=== PATIENT | female | born 1995 | race Caucasian/White ===

== ENCOUNTER 2019-10-07 07:27 | Emergency (ER) | payer OTHER ==
[2019-10-07 07:49] VITALS: BP 105/69
--- NOTE | 2019-10-07 09:13 | UC ---
Complaint Female HPI - HPI Summary HPI Summary: 4 DAYS OF WAXING AND WANING DYSURIA AND FREQUENCY. TODAY HAS LOW BACK PAIN. RECENTLY HAS BEEN HAVING A LOT OF SEX. LAST INTERCOURSE WAS JUST PRIOR TO THE ONSET OF HER SYMPTOMS. SHE ALSO IS COMPLAINING OF SOME VAGUE VAGINAL DISCOMFORT AND IS CONCERNED ABOUT A POSSIBLE YEAST INFECTION. SHE DENIES ANY CHANGE IN HER VAGINAL DISCHARGE. HAS BEEN USING OTC MONISTAT WITH SOME IMPROVEMENT. SHE IS NOT CONCERNED ABOUT OR STD. - History Of Current Complaint Chief Complaint: UCGU Stated Complaint: BURNING WHEN URINATING Time Seen by Provider: 10/07/19 08:02 Hx Obtained From: Patient Hx Last Menstrual Period: 09/28/19 Onset/Duration: Gradual Onset, Lasting Days, Still Present Severity Initially: Moderate Severity Currently: Moderate Pain Intensity: 4 Pain Scale Used: 0-10 Numeric Character: Burning Aggravating Factor(s): Urination Alleviating Factor(s): Nothing Associated Signs And Symptoms: Positive: Back Pain. Negative: Vaginal Bleeding/ Discharge, Nausea - Allergies/Home Medications Allergies/Adverse Reactions: Allergies Allergy/AdvReac Type Severity Reaction Status Date / Time Penicillins Allergy anaph Verified 10/07/19 07:49 Home Medications: Home Medications Cetirizine* [ZyrTEC 10 MG TAB*] 1 tab PO DAILY 10/07/19 [History Confirmed 10/07] Norethindrone AC-Eth Estradiol [Junel 1 mg-20 Mcg Tablet] 1 tab PO DAILY [History Confirmed 10/07/19] PMH/Surg Hx/FS Hx/Imm Hx Previously Healthy: Yes - Surgical History Surgical History: Yes Surgery Procedure, Year, and Place: [facility] right pinky finger hymenectomy - Family History Known Family History: Positive: Non-Contributory - Social History Alcohol Use: Occasionally Substance Use Type: None Smoking Status (MU): Never Smoked Tobacco Review of Systems All Other Systems Reviewed And Are Negative: Yes Constitutional: Positive: Negative Respiratory: Positive: Negative Cardiovascular: Positive: Negative Gastrointestinal: Positive: Negative Genitourinary: Positive: Dysuria, Frequency, Vaginal/Penile Pain. Negative: Urgency Physical Exam Triage Information Reviewed: Yes Appearance: Well-Appearing, No Pain Distress, Well-Nourished Vital Signs: Initial Vital Signs Temp 98.9 F 10/07/19 07:44 Pulse 82 10/07/19 07:44 Resp 18 10/07/19 07:44 BP 105/69 10/07/19 07:44 Pulse Ox 99 10/07/19 07:44 Laboratory Tests 10/07/19 08:23 POC Urine Color Yellow POC Urine Clarity Cloudy POC Urine pH 5.5 POC Ur Specif [place] >= 1.030 POC Urine Protein 1+ A POC Ur Glucose (UA) Negative POC Urine Ketones Negative POC Urine Blood 2+ A POC Urine Nitrite Negative POC Urine Bilirubin Negative POC Urine Urobilinogen 0.2 POC U Leukocyte Esteras 1+ A Eyes: Positive: Conjunctiva Clear ENT: Positive: Hearing grossly normal Neck: Positive: Supple Respiratory: Positive: No respiratory distress, No accessory muscle use Cardiovascular: Positive: Pulses Normal Abdomen Description: Positive: Soft. Negative: CVA Tenderness (R), CVA Tenderness (L), Distended, Guarding Pelvic Exam: Positive: Speculum Exam Normal - NABOTHIAN CYSTS ON CERVIX, No Cerv. Motion Tender. Negative: Cervicitis, Discharge Musculoskeletal: Positive: No Edema Neurological: Positive: Alert Psychological: Positive: Age Appropriate Behavior Skin: Negative: Rashes Complaint Female Dx - Course Course Of Treatment: URINE DIP SUGGESTIVE OF UTI SO WILL TREAT SUCH WITH BACTRIM. ADVISED TO STAY WELL-HYDRATED. PELVIC EXAM DONE TODAY AND CLINICAL FINDINGS NOT CONVINCING FOR VAGINITIS. SWAB SENT FOR TESTING. ADVISED TO CONTINUE HER OVER- THE-COUNTER MONISTAT. WILL CALL WITH ANY ABNORMAL RESULTS. PATIENT DECLINED TESTING AND STD TESTING TODAY. - Differential Dx/Diagnosis Provider Diagnosis: UTI (urinary tract infection) Discharge ED - Sign-Out/Discharge Documenting (check all that apply): Patient Departure All imaging exams completed and their final reports reviewed: No Studies - Discharge Plan Condition: Stable Disposition: HOME Prescriptions: Sulfamethox/Trimethoprim DS* [Bactrim DS 800/160 TAB*] 1 tab PO BID #10 tab Patient Education Materials: Urinary Tract Infection in Women (ED) Referrals: [facility] [Provider Group] [facility] [Outside] - If Needed Additional Instructions: YOUR URINE DIP TODAY IS SUGGESTIVE OF A UTI. WILL COVER WITH BACTRIM TWICE DAILY FOR 5 DAYS. STAY WELL HYDRATED. YOUR URINE SPECIMEN HAS BEEN SENT FOR CULTURE AND WE WILL CALL YOU IF YOUR MEDICATION NEEDS TO BE CHANGED. YOUR PHYSICAL EXAM TODAY IS NOT CONSISTENT WITH A YEAST INFECTION. THE OVER-THE- COUNTER MONISTAT YOU'RE USING MAY HAVE CLEARED THIS UP. CONTINUE TO COMPLETE THE RECOMMENDED COURSE. SWAB TAKEN AND WILL BE SENT FOR TESTING FOR VARIOUS FORMS OF VAGINITIS. WE WILL CALL YOU WITH ANY ABNORMAL RESULTS. I RECOMMEND YOU CALL [facility] TO GET ESTABLISHED FOR YOUR ROUTINE FEMALE PREVENTIVE CARE. ALL THE NUMBER BELOW FOR ASSISTANCE IN ESTABLISHING WITH A PCP An additional resource available to assist in finding the appropriate physician for your health care needs is [facility] ([facility]). You may contact them by calling [phone]. - Billing Disposition and Condition Condition: STABLE Disposition: Home
== END 2019-10-07 10:07 | disposition home or self-care (01) ==
LOC: UCEAST 07:27
DX: N39.0 Urinary tract infection, site not specified (principal); Z88.0 Allergy status to penicillin
CPT/HCPCS: 81003; 87086; 87480; 87510; 87660; 99202; G0463